=== PATIENT | male | born 1975 | race Caucasian/White ===

== ENCOUNTER 2016-06-04 10:40 | Inpatient (IN) | payer BC ==
[~2016-06-04] VITALS: Ht 175.3 cm; Wt 210.5 kg
--- NOTE | ~2016-06-04 | CO ---
ADMIT: 06/04/2016 RM/LOC: 421 [facility] MR#: [id number] [id number] [place], [place] [address] [place] [address] Consultation SEX: M AGE: 41 : 1975 DATE OF CONSULTATION: 06/04/2016 ATTENDING PHYSICIAN: Poncho Hassan CONSULTING PHYSICIAN: Sylvester Rosales MD ADDENDUM: You can see full dictated consult by Shalom Wang. Manish is a morbidly obese, 41-year-old, diabetic, poorly controlled, who has multiple comorbidities secondary to his morbid obesity and is being admitted by Dr. Hassan for a left abdominal wall abscess basically down in his pannus on the left side. He has noticed that there has been a lump there, painful, getting worse, warm, and he has not felt well. He is currently admitted because of that by Dr. Hassan. Come in to see him, he just finished a full tray of food of course and he is on Coumadin although his INR is only 1.36 so somewhat subtherapeutic, but that is kind of good for right now. We are going to hold it until we get this I and D. Manish feels this needs to be done in the OR with his size and we are going to need 2 people probably to handle this pannus. I think that is probably a good idea. That way we could see how deep this is, how bad it goes. He is diabetic. I do not currently see any skin changes that worry me that we have to jump and do this today or tonight. He says he has had multiple of these, never quite this big though. Discussed what we would do, risks, benefits, possible complications, and alternatives. He states he understands and wishes to proceed. I did tell him one of my other partners may possibly do this depending on timing. He does have a significant history of venous stasis disease and is chronically followed by the wound care nurses. His abdomen, other than this 4 cm kind of abscess on his left abdomen, kind of in his left lower pannus, looks okay. No real skin changes that look necrotic. This area is painful for him. The rest of his abdomen, other than being obese, is okay at this point. He does have significant venous stasis disease in his long extremities, chronic, that seems okay. ASSESSMENT AND PLAN: Hold Coumadin. Plan I and D tomorrow, we will get cultures at that time. Continue on IV antibiotics. N.p.o. after midnight. Sylvester Rosales MD/ sumeet JOB #: [id number] CC: Poncho Hassan, Attending Physician Poncho Hassan, Family Physician Poncho Hassan, DO
--- NOTE | ~2016-06-04 | WND ---
ADMIT: 06/04/2016 RM/LOC: 421 [facility] MR#: [id number] [address] [place], [place] [address] [place] [address] Wound Care Clinic SEX: M AGE: 41 : 1975 DATE OF VISIT: 06/04/2016 TIME IN: 1610 hours. TIME OUT: 1640 hours. REASON FOR VISIT: Evaluation and treatment of bilateral lower extremities with compression wraps and evaluation of left pannus. Request for wound care from Dr. Hassan. HISTORY OF PRESENT ILLNESS: This is a 41-year-old, male, well-known for [facility]. He has been followed since 2012, for bilateral lower extremity edema and superficial cutaneous ulcerations. He was last seen in the outpatient clinic on 06/02/2016. At that time, he had CoFlex Unna's boots applied from the toes to popliteal crease on both lower extremities. He had superficial cutaneous ulcerations noted on the lateral calf of the right foot. He had 1 small opening on the left lower extremity. The TheraBond was used over the open areas. The patient was seen at Dr. Hassan's office today after he noted a 2-day onset of left lower abdominal wall swelling, erythema, and tenderness. He felt it was an abscess since he had small ones before. He started to run a fever. He was examined by Dr. Hassan, who admitted him to [facility] for further evaluation and care. He has already been seen by Surgical Services and is scheduled for an I and D of a left abdominal wall abscess tomorrow morning on 06/05/2016. He is on anticoagulation, so his Coumadin is held today. Wound Care was consulted for care of his bilateral lower extremities. PAST MEDICAL HISTORY: Type 2 diabetes mellitus, morbid obesity, plantar fasciitis, chronic venous insufficiency, hypertension, obstructive sleep apnea, history of pulmonary embolus, history of cutaneous ulcerations to bilateral lower extremities. PAST SURGICAL HISTORY: Includes abdominal wall hernias x2, surgery for cellulitis. ALLERGIES: No known medication allergies. CURRENT MEDICATIONS: Per the MAR. Please see the MAR for further details. 1. Bumex. 2. Glucophage. 3. Levemir. 4. NovoLog. 5. Zosyn. P.r.n. medications: 1. Glutose. 2. Maalox. 3. Surfak. ADMIT: 06/04/2016 RM/LOC: 421 [facility] MR#: [id number] [address] [address] [facility] [address] [place] [address] Wound Care Clinic SEX: M AGE: 41 : 1975 4. Tylenol. 5. Glucagon. 6. Tylenol suppository. 7. D50. 8. D5NS. 9. Normal saline. FAMILY HISTORY: There is a bleeding tendency in his father and his sister. Diabetes in paternal grandfather. Heart disease in paternal grandmother. Breast and lung cancer in paternal grandmother. Venous insufficiency wounds in paternal grandmother. SOCIAL HISTORY: He is . He resides with his spouse in [place]. He has 3 children. He works for [employer], he works the 3rd shift, he is on his legs for the entire shift. Denies any tobacco use, very rare alcohol use, no illicit drug use. He is on a regular diet. Highest level of education is high school. REVIEW OF SYSTEMS: He is examined in his hospital bed where he is awake, alert, and oriented x3. He denies any current fever or chills, although he said he had fever at the doctor's office. He denies any nausea or vomiting. No cough, cold, or chest pain. He does have significant pain in his left pannus, especially if it is touched. He states the redness came on suddenly in the last 2 days. He denies any pain in his lower extremities. PHYSICAL EXAMINATION: VITAL SIGNS: Temperature 98, pulse 83, respirations 20, blood pressure 138/70, O2 sats on room air is 95%. Focused exam is to his pendulous abdomen. On the left pannus under the pannus crease, is an area of significant erythema and warmth. There is an area that is fluctuant and when he turned, it broke open and he had serosanguinous purulent drainage that shot out of the wound. The opening to the wound at this point in time measures 0.4 cm x 0.4 cm with a depth of 1 cm. It does undermine circumferentially. Focused exam to bilateral lower extremities shows his normal hailey legs. On the right lower extremity, foot circumference is 28 cm, ankle is 36 cm and calf 20 cm, malleolus is 54 cm. Posterior tibialis and dorsalis pedis is 1+. He does have firm edema noted. He has fine varicosities noted. On the lateral right calf is an area that measures 4 x 6 cm that has numerous superficial ulcerations noted. The largest measures 1 x 1.5 cm with a depth of 0.2 cm. It has a red moist wound base. It does appear improved from the visit 2 days ago. To the left lower extremity, foot circumference is 28 cm, ankle is 35.5 cm and calf 20 cm, malleolus is 53 cm. Posterior tibialis and dorsalis pedis is 1+. This also has his usual discoloration noted. His usual fine varicosities noted. Firm edema noted. The area that was opened 2 days ago has now sealed over. No open ulcerations noted. ADMIT: 06/04/2016 RM/LOC: 421 [facility] MR#: [id number] [address] [address] [address] [place] [address] Wound Care Clinic SEX: M AGE: 41 : 1975 ASSESSMENT: 1. Left abdominal wall abscess with cellulitis. 2. Chronic venous stasis dermatitis as well as venous insufficiency with superficial ulcerations to the right lower extremity treatment. 3. Diabetes mellitus, type 2. TREATMENT PLAN: To the pannus area, the yolande-opening was cleansed with ChloraPrep and aerobic and anaerobic cultures were obtained from inside the abscess. This was sent to the lab. Since he is scheduled for an I and D in the morning, the opening was covered with an ABD held in place with Medipore tape. Instructions on how to change it as needed for drainage. To the bilateral lower extremities, the legs were washed well with Dial soap and water, rinsed and patted dry. Aloe Byron was applied to both lower extremities except over the open areas on the lateral right calf. To the open area on the right lateral calf, TheraBond was moistened with excess moisture wrung out and placed on the openings waffle side down. This was covered with an ABD. Two layer compression wrap, Coban 2 Lite was applied from toes to popliteal crease covered with Coban from toes to popliteal crease bilaterally. Orders were written that the Juan Pablo's compression wraps can stay in place until 06/08/2016. He currently has an appointment scheduled for his wound care as an outpatient at that time. If he is still inpatient status at that time, the boots will be changed by Wound Care. Orders were written to keep the boots in place. To keep them dry. If the boots become wet, nursing staff was instructed to remove the boots and apply Mepilex Ag over the open areas of the right lower extremity and cover with Kerlix. Notify Wound Care. Thank you for this referral, and Wound will continue to follow. Loren Deluna APRN/ sumeet JOB #: [id number] CC: Poncho Hassan, Attending Physician Poncho Hassan, Family Physician
[~2016-06-04 10:40] MED LIST: ADVIL DPS200 MG PO; BUMETANIDE2 MG PO; COUMADIN1 MG PO; GLUCOPHAGE-DPS500 MG PO; HUMALOG100 UNIT/1 SQ; KEFLEX-DPS500 MG PO; KLOR-CON M2020 ME1 PO; LEVEMIR100 UNIT/1 SQ; ZESTRIL DPS5 MG PO; ZOCOR DPS20 MG PO
[2016-06-09] MEDS ORDERED: BUMEX DPS1 MG PO (09:57)
[2016-06-09] MEDS ORDERED: LASIX DPS80 MG PO (10:01)
[2016-06-09] MEDS ORDERED: MYCOSTATIN PWD15 GM TP (10:01)
[2016-06-09] MEDS ORDERED: DIFLUCAN DPS100 MG PO (10:01)
[2016-06-09] MEDS ORDERED: ROCEPHIN DPS2 GM IV (10:02)
--- NOTE | 2016-06-10 08:28 | OR ---
ADMIT: 06/04/2016 RM/LOC: 421 [facility] MR#: [id number] [address] [address] [place] [address] Operative/Delivery Room Report SEX: M AGE: 41 : 1975 SURGERY DATE: 06/05/2016 SURGEON: Juanjose Reich MD PREOPERATIVE DIAGNOSIS: Abdominal wall abscess of the left lower quadrant pannus. POSTOPERATIVE DIAGNOSIS: Abdominal wall abscess of the left lower quadrant pannus. PROCEDURE: Incision and drainage of abdominal wall abscess. STEEL FINISHER: JEANETTE Dutta, whose assistance was necessary for retraction of the massive pannus. ANESTHESIA: General. ESTIMATED BLOOD LOSS: 10 mL. DESCRIPTION OF PROCEDURE: The patient was taken to the operating room and placed supine on the operating room table. General anesthesia was established. The abdomen was prepped and draped in the standard surgical fashion. Retraction of the pannus of the lower abdomen revealed the large abscess underlying this. The overlying necrotic skin was debrided sharply and the abscess cavity was drained. Inspection of the wound revealed no significant loculations. The wound was irrigated until there was no residual purulence. The pus had been cultured the night before upon spontaneous drainage of the abscess and so, no repeat culture was performed. The wound was packed with 0.5 inch iodoform Nu Gauze and a dressing was applied after injection of local anesthetic. Sponge, needle, and instrument counts were correct at the end of the case. The patient tolerated the procedure well and transferred to the recovery area in stable condition. Juanjose Reich MD/ sumeet JOB #: [id number] CC: Poncho Hassan, Attending Physician Poncho Hassan, Family Physician
--- NOTE | 2016-06-15 08:25 | HP ---
ADMIT: 06/04/2016 RM/LOC: 421 [facility] MR#: [id number] [address] [place], [place] [address] [place] [address] History and Physical SEX: M AGE: 41 : 1975 DATE OF SERVICE: 06/05/2016 REASON FOR HOSPITALIZATION: Abdominal wall abscess, panniculitis, hyperglycemia, uncontrolled diabetes. HISTORY OF PRESENT ILLNESS: Manish is a 41-year-old, male patient, who came into my office yesterday to report that he had polyuria, polydipsia. In his own words, "I have been drinking a lot and peeing a lot." He also reported that he had sore underneath of the folds of his abdomen. When we examined him, we found him to have a large fluctuant abscess with panniculitis and cellulitis. His blood sugar was greater than 300. He was subsequently admitted for management of the cellulitis and abscess as well as blood sugar control. PAST MEDICAL HISTORY: He has a medical history of type 2 diabetes mellitus, severe obesity, plantar fasciitis, chronic venous insufficiency, hypertension, obstructive sleep apnea, pulmonary embolism, skin ulcers of the lower extremities. PAST SURGICAL HISTORY: He has had prior abdominal wall hernia repairs. ALLERGIES: HE HAS NO KNOWN ALLERGIES. MEDICATIONS: His current medicines are: 1. Bumex. 2. Glucophage. 3. Levemir. 4. NovoLog. 5. I have started him on Zosyn. 6. He takes p.r.n. therapies as well. SOCIAL HISTORY: He does continue to work at [employer]. He is . Does not smoke. FAMILY HISTORY: Noncontributory outside of diabetes and some heart disease. REVIEW OF SYSTEMS: GENERAL: Fatigue, the warmth and tenderness in his abdomen. No current chest pain, shortness of breath, nausea, vomiting, or diarrhea. PHYSICAL EXAMINATION: VITAL SIGNS: He is severely obese, body mass index greater than 70. Blood pressure currently 150/83, temp 98.9. HEART: He has a regular heart. LUNGS: Distant lung. ABDOMEN: He has a panniculitis, cellulitis and when we lift the folds of his abdomen, he has a large abscess. EXTREMITIES: He has chronic stasis dermatitis and lower extremity severe edema. LABORATORY DATA: His potassium currently 3.6, INR 1.36. His Coumadin is on hold for possible surgical I and D of his wound. His blood sugar now is 285 ADMIT: 06/04/2016 RM/LOC: 421 [facility] MR#: [id number] [address] [address] [address] [place] [address] History and Physical SEX: M AGE: 41 : 1975 on a sliding scale of insulin, his hemoglobin A1c is 12.1, white count is 7.5, hemoglobin is 4.3. Cultures are pending. IMPRESSION: 1. Panniculitis. 2. Cellulitis. 3. Abscess. 4. Uncontrolled diabetes mellitus. 5. Severe obesity. 6. Obstructive sleep apnea. 7. Chronic venous hypertension with edema. PLAN: Admit, we will try to control his blood sugars, put him on IV antibiotic therapy, have Wound Care see him, ask Surgery to see to consider surgical I and D. His Coumadin is on hold for this procedure. Poncho Hassan DO/ modl JOB #: [id number] CC: Poncho Hassan, Attending Physician Poncho Hassan, Family Physician
--- NOTE | 2016-07-04 12:10 | CO ---
ADMIT: 06/04/2016 RM/LOC: 421 [facility] MR#: [id number] [address] [address] [place] [address] Consultation SEX: M AGE: 41 : 1975 DATE OF CONSULTATION: 06/04/2016 ATTENDING PHYSICIAN: Poncho Hassan CONSULTING PHYSICIAN: Sylvester Rosales MD REASON FOR CONSULTATION: Abdominal wall abscess. HISTORY OF PRESENT ILLNESS: Kulwant is very pleasant, 41-year-old male, who states that he had a two day onset of left lower abdominal wall swelling, erythema, and tenderness. He believes it is an abscess because he has had multiple small ones before that happened to heal on their own. Just this morning, the patient has noticed that he started running a fever. It is quite warm to touch and also very tender for him. Of note, he is on anticoagulation therapy involving Coumadin. PAST MEDICAL HISTORY: Significant for type 2 diabetes, morbid obesity, and plantar fasciitis, chronic venous insufficiency, hypertension, obstructive sleep apnea, and history of pulmonary embolus. PAST SURGICAL HISTORY: 1. Abdominal wall hernias x2, one might be an umbilical hernia. 2. Surgery for cellulitis. However, he does not know the exact procedure. ALLERGIES: NO KNOWN DRUG ALLERGIES. MEDICATIONS: Well documented in chart. He is on Coumadin. FAMILY HISTORY: Noncontributory. SOCIAL HISTORY: The patient is a rare alcohol drinker, but denies any tobacco or illicit drug use. REVIEW OF SYSTEMS: LUNGS: The patient reports shortness of breath, constantly. However, he denies any changes with this cough or hemoptysis. The rest of comprehensive 10-point review of systems was performed and all other systems are negative. PHYSICAL EXAMINATION: GENERAL: The patient is in no acute distress. He is alert and oriented. HEENT: Head is normocephalic and atraumatic. EOMS are intact. Conjunctivae free of icterus, erythema, or pallor. Pinnae, free of deformities. Nose, midline. No tracheal deviation. NECK: Supple. SKIN: Negative for jaundice, clubbing, edema, pallor, or cyanosis. LUNGS: Normal respiratory effort. HEART: Distal pulses intact. Regular rate and rhythm. ABDOMEN: Morbid obesity noted. Tender at left lower abdomen. There is some redness noted also on his pannus. Soft and nondistended. Fluctuant mass ADMIT: 06/04/2016 RM/LOC: 421 [facility] MR#: [id number] [address] [address] [facility] [address] [place] [address] Consultation SEX: M AGE: 41 : 1975 noted in left lower abdomen underneath the pannicular fold, tender to touch and warm. EXTREMITIES: Venous insufficiency noted in his bilateral lower extremities with dusky appearance. NEURO: Grossly intact. LABORATORY DATA: White blood cell count 7.5. INR 1.36. ASSESSMENT: Abdominal wall abscess. PLAN: The plan is to have the patient undergo incision and drainage of this abscess in the OR performed by Dr. Rosales. Him and I both discussed the risks, alternatives, benefits, and complications of this procedure with the patient to which he is in agreement of this plan, I had all his questions answered and would like to proceed. So far, I have him on the schedule and Dr. Rosales has wrote orders to get him ready for this procedure. JEANETTE Dutta / Sylvester Rosales MD / sumeet JOB #: [id number] CC: Poncho Hassan, Attending Physician Poncho Hassan, Family Physician
--- NOTE | 2016-07-15 08:25 | DS ---
ADMIT: 06/04/2016 RM/LOC: 421 [facility] MR#: [id number] [address] [place], [place] [address] [place] [address] General Discharge Summary SEX: M AGE: 41 : 1975 ADMISSION DATE: 06/04/2016 DISCHARGE DATE: 06/08/2016 REASON FOR HOSPITALIZATION: Cellulitis. HISTORY OF PRESENT ILLNESS: This is a 41-year-old, severely obese male patient with diabetes, hyperglycemia, panniculitis, and a left abdominal wall fold, abscess, and cellulitis. He was also complaining of urinary frequency, polyuria, and polydipsia and was found to have uncontrolled diabetes. HOSPITAL COURSE: He was admitted to the hospital. We asked for surgical consultation for I and D of his abdominal wall abscess. Started him on IV antibiotic therapy, sliding scale insulin, and supportive care. He was started on IV antibiotic consisting of Zosyn. Wound Care evaluation was performed and recommendations were implemented. He is chronically on Coumadin therapy and this was held during his surgical interventions. He had stasis edema and Lasix was provided. By 06/08/2016, he was much better, his erythema had improved, he was growing group B strep, and was felt that he was appropriate for dismissal home on IV Rocephin as an outpatient with Wound Care management. FINAL DIAGNOSES: 1. Panniculitis. 2. Abscess. 3. Severe obesity. 4. Diabetes mellitus. 5. Stasis edema. 6. Dermatitis. Poncho Hassan DO/ sumeet JOB #: [id number] CC: Poncho Hassan DO, Attending Physician Poncho Hassan DO, Family Physician
== END 2016-06-08 12:21 | disposition home or self-care (01) | DRG 580 ==
LOC: 4PCU 10:40
PROVIDERS: ADMIT Internal Medicine
PROC: 0W9F0ZZ Drainage of Abdominal Wall, Open Approach (ICD-10-PCS; principal; 2016-06-05)
DX: L02.211 Cutaneous abscess of abdominal wall (principal); Z68.45 Body mass index [BMI] 70 or greater, adult; E11.65 Type 2 diabetes mellitus with hyperglycemia; I10 Essential (primary) hypertension; B37.49 Other urogenital candidiasis; B95.1 Streptococcus, group B, as the cause of diseases classified elsewhere; M79.3 Panniculitis, unspecified; E66.01 Morbid (severe) obesity due to excess calories; I87.2 Venous insufficiency (chronic) (peripheral); G47.33 Obstructive sleep apnea (adult) (pediatric); Z86.711 Personal history of pulmonary embolism; Z79.01 Long term (current) use of anticoagulants; Z79.4 Long term (current) use of insulin

== ENCOUNTER 2016-08-01 18:28 | Emergency (ER) | payer BC ==
[~2016-08-01 18:28] MED LIST changes: +BUMEX DPS1 MG PO; +DIFLUCAN DPS100 MG PO; +LASIX DPS80 MG PO; +MYCOSTATIN PWD15 GM TP; +ROCEPHIN DPS2 GM IV
--- NOTE | 2016-08-12 09:41 | ER ---
ADMIT: 08/01/2016 RM/LOC: ER [facility] MR#: [id number] [address] [place], [place] [address] [place] [address] Emergency Room Report SEX: M AGE: 41 : 1975 DATE: 08/01/2016 ADDENDUM: CHIEF COMPLAINT: Diarrhea and rectal pain. HISTORY OF PRESENT ILLNESS: This is a 41-year-old male, who started having diarrhea just yesterday. He said he has had a lot of burning in his rectum and pain with bowel movements. On examination, he does have a hemorrhoid. Abdomen exam, he is tender just umbilical. COURSE IN THE EMERGENCY ROOM: CBC, CMP, and Hemoccult was done. Hemoccult was positive, but there was some hemorrhoid seemed to be abrased. CMP is normal except for glucose of 281. His CBC is normal. I am discharging him home and told him, he could use [id number] Tucks for his hemorrhoids. Push fluids. Follow up with primary care physician if worsen. IMPRESSION: 1. Abdominal pain. 2. Hemorrhoid. JEANETTE Barragan / Miguelito Julio MD / sumeet JOB #: [id number] CC: Ajay Lambert MD, Attending Physician Poncho Hassan DO, Family Physician
== END 2016-08-01 20:30 | disposition home or self-care (01) ==
LOC: ER 18:28
DX: K64.9 Unspecified hemorrhoids (principal); E11.65 Type 2 diabetes mellitus with hyperglycemia; R19.7 Diarrhea, unspecified; Z79.4 Long term (current) use of insulin

== ENCOUNTER 2016-12-20 16:25 | Emergency (ER) | payer BC ==
--- NOTE | 2016-12-23 09:47 | ER ---
ADMIT: 12/20/2016 RM/LOC: ER [facility] MR#: [id number] [address] [place], [place] [address] [place] [address] Emergency Room Report SEX: M AGE: 41 : 1975 DATE: 12/20/2016 HISTORY OF PRESENT ILLNESS: The patient is a diabetic who presents to the emergency room complaining of vomiting, diarrhea, and abdominal discomfort. He vomited twice and had diarrhea twice. For medications, see T-sheet. He does have a history of DVTs, and he is on anticoagulants, PE, diabetes type 2 on oral agent and insulin as well. He has had umbilical hernia repair twice. Alcohol rarely. Denies drugs. PHYSICAL EXAMINATION: VITAL SIGNS: Blood pressure 151/91 with a MAP of 108, pulse is 78, respirations 20, temperature is 100.2, 91% room air O2. GENERAL: Morbidly obese male, alert and oriented. HEENT: Normal to inspection. NECK: Supple. CHEST: Respirations, no distress. CVS: Regular in rate and rhythm. ABDOMEN: Soft. Bowel sounds are hyperactive. BACK: Normal inspection. SKIN: Good color and turgor. EXTREMITIES: Well perfused, oriented x4. LABORATORY DATA: White count is 4.4, platelets of 116. Chemistry; glucose of 207 with a calcium of 7.8. He has osmolality of 289 with ketones negative, lipase 107, AST 109. UA, urobilinogen 2.0 with rbc's of 29, glucose 30, protein 2+. He has been given fluids and resting very comfortably. He is getting hydrated. We asked him to get a sample of stool, but he was unable to go while in the ER, so we are sending him home with a stool kit. He verbalized understanding for the need to bring the stool for evaluation. Follow up with kira Jones Zofran for nausea. Continue home medications. JEANETTE Wright / Shalom Castellon MD / sumeet JOB #: [id number] CC: Shalom Castellon MD, Attending Physician Zoe Farias MD, Family Physician
== END 2016-12-20 20:36 | disposition home or self-care (01) ==
LOC: ER 16:25
DX: R11.2 Nausea with vomiting, unspecified (principal); R19.7 Diarrhea, unspecified; E11.9 Type 2 diabetes mellitus without complications; Z79.4 Long term (current) use of insulin; Z79.899 Other long term (current) drug therapy